=== PATIENT | female | born 2000 | race African-American/Black ===

== ENCOUNTER → 2021-01-05 | Outpatient (CLI) | payer OTHER | LOC: LAB 10:52 | PROVIDERS: ATTEND Obstetrics & Gynecology | DX: Z01.419 Encounter for gynecological examination (general) (routine) without abnormal findings (principal); Z11.3 Encounter for screening for infections with a predominantly sexual mode of transmission; A74.9 Chlamydial infection, unspecified | CPT/HCPCS: 36415; 86592; 86696; 86703 ==